=== PATIENT | male | born 1995 | race African-American/Black ===

== ENCOUNTER 2018-01-14 13:03 | Emergency (ER) | payer SELFPAY, OTHER | END 2018-01-14 14:08 | disposition home or self-care (01) | LOC: ER 13:03 | DX: N50.89 Other specified disorders of the male genital organs (principal); J45.909 Unspecified asthma, uncomplicated | CPT/HCPCS: 99281 ==

== ENCOUNTER 2018-05-30 22:11 | Emergency (ER) | payer SELFPAY ==
[~2018-05-30] VITALS: Ht 182.9 cm; Wt 63.5 kg
[2018-05-30 23:48] VITALS: BP 126/58
[2018-05-31] MEDS ORDERED: diphenhydrAMINE HCL 25 MG CAPSULE PO ONE (00:15)
--- NOTE | 2018-05-31 04:00 | PHYS DOC ---
Past Medical History Past Medical History: Asthma Past Surgical History: No Surgical History Alcohol Use: None Drug Use: None Adult General Chief Complaint Chief Complaint: SKIN PROBLEM HPI HPI Patient is a 23 year old AA male who presents with skin eruption over upper and lower extremities. Patient with counter nodular rash over arms, legs. No erythema, itching, swelling. No. No other acute symptoms or complaints. [] Review of Systems Review of Systems ROS as per HPI All other systems were reviewed and found to be within normal limits, except as documented in this note. Current Medications Current Medications Current Medications Medications (Trade) Dose Ordered Sig/Kushal Start Time Stop Time Status Last Admin Dose Admin Diphenhydramine HCl (Benadryl) 50 mg 1X ONCE 05/31/18 00:15 05/31/18 00:15 DC 05/31/18 00:07 50 MG Allergies Allergies Allergies Coded Allergies Type Severity Reaction Last Updated Verified No Known Drug Allergies 05/10/14 No Physical Exam Physical Exam Constitutional: Well developed, well nourished, no acute distress, non-toxic appearance. [] HENT: Normocephalic, atraumatic, bilateral external ears normal, oropharynx moist, no oral exudates, nose normal. [] Eyes: PERRLA, EOMI, conjunctiva normal, no discharge. [] Neck: Normal range of motion, no tenderness, supple. [] Cardiovascular:Heart rate regular rhythm, no murmur [] Lungs & Thorax: Bilateral breath sounds clear to auscultation [] Extremities: Nonspecific skin eruption, sporadic nodules over B upper and lower extremity. [] Neurologic: Alert and oriented X 3, normal motor function, normal sensory function, no focal deficits noted. [] Psychologic: Affect normal, judgement normal, mood normal. [] Current Patient Data Vital Signs Vital Signs Date Time Temp Pulse Resp B/P (MAP) Pulse Ox O2 Delivery O2 Flow Rate FiO2 05/30/18 23:48 98.6 77 18 126/58 (80) Room Air 98.6 EKG EKG [] Radiology/Procedures Radiology/Procedures [] Course & Med Decision Making Course & Med Decision Making Pertinent Labs and Imaging studies reviewed. (See chart for details) [Nonspecific rash already improved without tx [facility] [facility].. Benadryl given.] Dragon Disclaimer Dragon Disclaimer This electronic medical record was generated, in whole or in part, using a voice recognition dictation system. Departure Departure Impression: Primary Impression: Skin rash Disposition: HOME, SELF-CARE Condition: GOOD Patient Instructions: Rash Additional Instructions: You were evaluated emergency department for nonspecific skin rash. The cause of your symptoms has not been determined. Please take 50 mg of Benadryl 3 times daily and ibuprofen as needed for swelling. Contact your PCP if rash persists greater than 24 hours and schedule follow-up appointment.. AYANNA IVERSON DO May 31, 2018 04:00
== END 2018-05-31 00:11 | disposition home or self-care (01) ==
LOC: ER 22:11
DX: R21 Rash and other nonspecific skin eruption (principal); J45.909 Unspecified asthma, uncomplicated; R22.43 Localized swelling, mass and lump, lower limb, bilateral; R22.33 Localized swelling, mass and lump, upper limb, bilateral
CPT/HCPCS: 99282; Q0163

== ENCOUNTER 2020-03-08 12:36 | Emergency (ER) | payer SELFPAY ==
[~2020-03-08] VITALS: Ht 182.9 cm; Wt 59.0 kg
[2020-03-08] MEDS ORDERED: IV NORMAL SALINE 1000ML BAG 1,000 ML IV ONE (13:15)
[2020-03-08 13:26] LABS: BASO % 1 % (0-3); EOS # 0.4 x10^3/uL (0.0-0.7); EOS % 6 % (0-3); HEMATOCRIT 43.3 % (39.0-53.0); HEMOGLOBIN 14.8 g/dL (13.0-17.5); LYMPH % 34 % (24-48); MEAN CORPUSCULAR HEMOGLOBIN 29 pg (25-35); MEAN CORPUSCULAR HGB CONC 34 g/dL (31-37); MEAN CORPUSCULAR VOLUME 85 fL (79-100); MONO # 0.5 x10^3/uL (0.0-1.1); MONO % 9 % (0-9); NEUT # 2.9 x10^3/uL (1.8-7.7); NEUT % 50 % (31-73); PLATELET COUNT 252 x10^3/uL (140-400); RED BLOOD COUNT 5.08 x10^6/uL (4.30-5.70); RED CELL DISTRIBUTION WIDTH 13.9 % (11.5-14.5); WHITE BLOOD COUNT 5.8 x10^3/uL (4.0-11.0)
--- NOTE | 2020-03-08 13:29 | PHYS DOC ---
Past Medical History Past Medical History: Asthma Past Surgical History: No Surgical History Smoking Status: Never Smoker Alcohol Use: None Drug Use: None General Adult EDM: Chief Complaint: ABDOMINAL PAIN HPI: HPI: Patient is a 24 year old male who presents with umbilical and left lower quadrant pain. Patient reports that pain started this afternoon after eating lunch, he ate pizza and chips. . Patient denies any heavy lifting, nausea, vomiting, diarrhea, fever, constipation, dysuria, urinary frequency, or penile discharge. Patient's last bowel movement was 2 days ago and he reports that is normal for him, he denies any blood in his stools. Patient rates pain 3 out of 10 on the pain scale and reports that it feels like a strain. There is no radiation of pain, patient took no treatment prior to arrival for his symptoms. Patient reports that the pain is exacerbated when he bends forward. Review of Systems: Review of Systems: Constitutional: Denies fever or chills. [] Respiratory: Denies cough or shortness of breath. [] Cardiovascular: Denies chest pain or edema. [] GI: See HPI : Denies dysuria. [] Musculoskeletal: Denies back pain or joint pain. [] Integument: Denies rash. [] Psychiatric: Denies depression or anxiety. [] Heart Score: Risk Factors: Risk Factors: DM, Current or recent (<one month) smoker, HTN, HLP, family history of CAD, obesity. Risk Scores: Score 0 - 3: 2.5% MACE over next 6 weeks - Discharge Home Score 4 - 6: 20.3% MACE over next 6 weeks - Admit for Clinical Observation Score 7 - 10: 72.7% MACE over next 6 weeks - Early Invasive Strategies Allergies: Allergies: Allergies Coded Allergies Type Severity Reaction Last Updated Verified No Known Drug Allergies 05/10/14 No Physical Exam: PE: Constitutional: Well developed, well nourished, no acute distress, non-toxic appearance. [] HENT: Normocephalic, atraumatic, bilateral external ears normal, oropharynx moist, nose normal. [] Eyes: PERRLA, EOMI, conjunctiva normal, no discharge. [] Neck: Normal range of motion, no stridor. [] Cardiovascular:Heart rate regular rhythm, no murmur [] Lungs & Thorax: Bilateral breath sounds clear to auscultation,Respirations even and unlabored, no retractions, no respiratory distress [] Abdomen: Bowel sounds normal, soft and flat, no masses, no pulsatile masses; tenderness with palpation of LLQ no rebound tenderness or guarding. [] Skin: Warm, dry, no erythema, no rash. [] Back: No tenderness[] Extremities: No tenderness, no cyanosis, no clubbing, ROM intact, no edema. [] Neurologic: Alert and oriented X 3, normal motor function, no focal deficits noted. [] Psychologic: Affect normal, judgement normal, mood normal. [] EKG: EKG: [] Radiology/Procedures: Radiology/Procedures: PROCEDURE: CT ABD PELV W/ IV CONTRST ONLY CT abdomen pelvis with contrast. HISTORY: Left-sided abdominal pain CT scan the abdomen and pelvis was done using 75 mL Omnipaque 300 contrast. There is respiratory motion. Lung bases are clear. A liver lesion is not identified. There is no calcified gallstone. Spleen and adrenal glands are normal. Pancreas is normal. There is no mass or hydronephrosis in the kidneys. There is no bowel obstruction. There is no free fluid. The appendix is difficult to separate from the adjacent bowel loops. There is not evidence of which suggests an appendicitis. There is no inflammation in the pelvis. There is not evidence of a diverticulitis or definite colitis. IMPRESSION: 1. Not definite CT evidence of an acute appendicitis. 3. No bowel obstruction. 4. No other acute finding. [] Course & Med Decision Making: Course & Med Decision Making Pertinent Labs and Imaging studies reviewed. (See chart for details) 24-year-old male presents with complaint of abdominal pain work-up includes labs and a CT abdomen pelvis with contrast. We will give patient 1 L of IV fluids and treat pain/nausea as needed. CBC is unremarkable; CMP is unremarkable; UA is concerning for 10-20 white blood cells and no bacteria. Concern for sexually transmitted infection versus urinary tract infection is added to the differential. Will order gonorrhea and chlamydia testing per urine. Patient was treated prophylactically with 250 mg of IM Rocephin, and 1 g of PO Zithromax. Patient was instructed to avoid having intercourse until the results of gonorrhea and chlamydia testing are available, patient was notified that these results would not be available for 48 hours. If one or both of these tests is positive, patient needs to refrain from intercourse for approximately 1 week following the treatment of any current partners. Prescription written for Keflex 5 mg p.o. twice daily, encourage patient to increase fluid intake and avoid bladder irritants. Patient verbalized an understanding of home care, medications, follow-up, and return to ED instructions and was in agreement with the plan of care. [] Dragon Disclaimer: Dragon Disclaimer: This electronic medical record was generated, in whole or in part, using a voice recognition dictation system. Departure Departure Impression: Primary Impression: Urinary tract infection Qualified Codes: N39.0 - Urinary tract infection, site not specified Additional Impression: Contact with and (suspected) exposure to infections with a predominantly sexual mode of transmission Disposition: HOME, SELF-CARE Condition: STABLE Referrals: HANH JOHNS MD (PCP) Patient Instructions: Sexually Transmitted Disease, [id number], Urinary Tract Infection, [id number] Additional Instructions: Fill prescription(s) and use as directed. Avoid bladder irritants such as caffeine, carbonation, and spicy foods. Increase clear fluids. Recommend that you go to your local health department for comprehensive sexually transmitted disease testing. You have been treated for a suspected gonorrhea and chlamydia. Avoid having intercourse until the results of gonorrhea and chlamydia testing are available, these results will not be available for 48 hours. If one or both of these tests is positive, you need to refrain from intercourse for approximately 1 week following the treatment of any current partners. Follow-up with your primary care doctor if symptoms persist, return to ER if symptoms worsen. Scripts Cephalexin (KEFLEX) 500 Mg Capsule 500 MG PO QID for 7 Days, #28 CAP 0 Refills Prov: HO ELLISON APRN 03/08/20 Justicifation of Admission Dx: Justifications for Admission: Justification of Admission Dx: N/A HO ELLISON APRN Mar 08, 2020 13:29
[2020-03-08 13:38] LABS: CALCIUM 8.9 mg/dL (8.5-10.1); CREATININE 1.1 mg/dL (0.7-1.3); GFR 98.7; POTASSIUM 4.1 mmol/L (3.5-5.1)
[2020-03-08 13:43] LABS: ALBUMIN 4.2 g/dL (3.4-5.0); ALBUMIN/GLOBULIN RATIO 1.2 (1.0-1.7); MAGNESIUM 1.9 mg/dL (1.8-2.4); TOTAL BILIRUBIN 0.7 mg/dL (0.2-1.0); TOTAL PROTEIN 7.8 g/dL (6.4-8.2)
[2020-03-08] MEDS ORDERED: CONTRAST GIVEN. MC PRN (14:00)
[2020-03-08] MEDS ORDERED: IOHEXOL 300 MG/ML 100ML VIAL. IV ONE (14:00)
[2020-03-08 14:09] VITALS: BP 103/56
[2020-03-08 14:11] LABS: BILIRUBIN,URINE NEGATIVE (NEG); CLARITY,URINE CLEAR; COLOR,URINE YELLOW; NITRITE,URINE NEGATIVE (NEG); PROTEIN,URINE NEGATIVE (NEG-TRACE)
[2020-03-08 14:19] LABS: BACTERIA,URINE 0 /HPF (0-FEW); RBC,URINE OCC /HPF (0-2)
[2020-03-08] MEDS ORDERED: AZITHROMYCIN 250 MG TABLET. PO ONE (14:45)
[2020-03-08] MEDS ORDERED: cefTRIAXone IM 250 MG VIAL IM ONE (14:45)
--- NOTE | 2020-03-08 15:03 | RAD ---
CT abdomen pelvis with contrast. HISTORY: Left-sided abdominal pain CT scan the abdomen and pelvis was done using 75 mL Omnipaque 300 contrast. There is respiratory motion. Lung bases are clear. A liver lesion is not identified. There is no calcified gallstone. Spleen and adrenal glands are normal. Pancreas is normal. There is no mass or hydronephrosis in the kidneys. There is no bowel obstruction. There is no free fluid. The appendix is difficult to separate from the adjacent bowel loops. There is not evidence of which suggests an appendicitis. There is no inflammation in the pelvis. There is not evidence of a diverticulitis or definite colitis. IMPRESSION: 1. Not definite CT evidence of an acute appendicitis. 3. No bowel obstruction. 4. No other acute finding. PQRS Compliance Statement: One or more of the following individualized dose reduction techniques were utilized for this examination: 1. Automated exposure control 2. Adjustment of the mA and/or kV according to patient size 3. Use of iterative reconstruction technique Electronically signed by: Haresh Diaz MD (03/08/2020 3:00 PM) [facility]
[2020-03-08] MEDS ORDERED: CEPH-264 PO (15:17)
== END 2020-03-08 15:40 | disposition home or self-care (01) ==
LOC: ER 12:36
DX: N39.0 Urinary tract infection, site not specified (principal); Z20.2 Contact with and (suspected) exposure to infections with a predominantly sexual mode of transmission; J45.909 Unspecified asthma, uncomplicated
CPT/HCPCS: 36415; 74177; 80053; 81001; 83690; 83735; 85025; 87086; 87491; 87591; 96372; 99285; J0696; J7030; Q9967

== ENCOUNTER 2021-08-22 00:06 | Emergency (ER) | payer SELFPAY ==
[~2021-08-22] VITALS: Ht 182.9 cm; Wt 59.1 kg
[~2021-08-22 00:06] MED LIST: CEPH-264 PO
[2021-08-22 01:34] VITALS: BP 117/63
--- NOTE | 2021-08-22 01:35 | PHYS DOC ---
Past Medical History Past Medical History: Asthma Past Surgical History: No Surgical History Smoking Status: Never Smoker Alcohol Use: None Drug Use: None General Adult EDM: Chief Complaint: FLU SYMPTOM HPI: HPI: Patient is a 26 year old male who is here for report of several months of fatigue, worsening over the last few weeks. He denies chest pain, dyspnea, dyspnea exertion, cough, headache, dizziness, syncope, focal weakness, numbness or tingling. He denies abdominal pain, nausea, vomiting, diarrhea. He denies urinary symptoms. He denies syncope or near syncope. He denies any physical pain or discomfort. He reports that he is eating and drinking well. He reports he is working 2 full-time jobs and has not been sleeping very well. Ultimately, he reports that he is here to request a work note to be excused for remainder of his shift today. Review of Systems: Review of Systems: Constitutional: Denies fever or chills. He does report generalized fatigue. Eyes: Denies change in visual acuity. [] HENT: Denies nasal congestion or sore throat. [] Respiratory: Denies cough or shortness of breath. [] Cardiovascular: Denies chest pain or edema. [] GI: Denies abdominal pain, nausea, vomiting, or diarrhea : Denies urinary symptoms Musculoskeletal: Denies back pain or joint pain. [] Integument: Denies rash. [] Neurologic: Denies headache, focal weakness or sensory changes. [] Endocrine: Denies polyuria or polydipsia. [] Lymphatic: Denies swollen glands. [] Psychiatric: Denies depression or anxiety. [] Heart Score: C/O Chest Pain: No Risk Factors: Risk Factors: DM, Current or recent (<one month) smoker, HTN, HLP, family history of CAD, obesity. Risk Scores: Score 0 - 3: 2.5% MACE over next 6 weeks - Discharge Home Score 4 - 6: 20.3% MACE over next 6 weeks - Admit for Clinical Observation Score 7 - 10: 72.7% MACE over next 6 weeks - Early Invasive Strategies Allergies: Allergies: Allergies Coded Allergies Type Severity Reaction Last Updated Verified No Known Drug Allergies 05/10/14 No Physical Exam: PE: Constitutional: Well developed, well nourished, no acute distress, non-toxic appearance. [] HENT: Normocephalic, atraumatic Eyes: Sclera are clear and anicteric, conjunctive are normal Neck: Normal range of motion, no tenderness, supple, no stridor. Trachea is midline Cardiovascular:Heart rate regular rhythm, no peripheral edema, warm and well perfused, +2 radial pulses bilaterally Lungs & Thorax: Bilateral breath sounds clear to auscultation [] Abdomen: Abdomen soft, nondistended, nontender to palpation Skin: Warm, dry, no erythema, no rash. [] Back: No tenderness, no CVA tenderness. [] Extremities: No tenderness, no cyanosis, no clubbing, ROM intact, no edema. No calf tenderness. Neurologic: Alert and oriented X 3, normal motor function, normal sensory function, no focal deficits noted. [] Psychologic: Affect is flat. He is cooperative. [] EKG: EKG: [] Radiology/Procedures: Radiology/Procedures: [] Course & Med Decision Making: Course & Med Decision Making I discussed the findings, differential diagnosis and plan of care with the patient. He is well-appearing. He admits that he requires a note to excuse him for the rest of the work shift today. He has another 6 days off after this. He has no specific focal complaints. He has an unremarkable exam. There is no current indication for further invasive exams, imaging at this time. I told him he must follow-up with a primary care physician for further evaluation and treatment. There may be an underlying, nonemergent emergent issue that may be evaluated as an outpatient by primary care physician, and I recommend that he contact them this week. Return precautions are given. Bj Disclaimer: Bj Disclaimer: This electronic medical record was generated, in whole or in part, using a voice recognition dictation system. Departure Departure Impression: Primary Impression: Fatigue Disposition: HOME / SELF CARE / HOMELESS Condition: GOOD Referrals: HANH JOHNS MD (PCP) Patient Instructions: Fatigue Additional Instructions: Return to the ER for emergency medical condition, such as chest pain, shortness of breath, fever, vomiting, dehydration, abdominal pain, focal weakness, if you are acutely injured or have any trauma or any other concerns. Make sure you get plenty of rest, stay well-hydrated. Follow-up with a primary care physician. JULY MARI DO Aug 22, 2021 01:34
== END 2021-08-22 02:07 ==
LOC: ER 00:06
DX: R53.83 Other fatigue (principal); J45.909 Unspecified asthma, uncomplicated
CPT/HCPCS: 99281